=== PATIENT | male | born 1985 | race Caucasian/White ===

== ENCOUNTER 2024-09-26 15:39 | Emergency (ER) | payer BC, SELFPAY ==
[2024-09-26] VITALS (26 sets, daily range): BP systolic 132–165; BP diastolic 84–118; PULSE 73–97; RESP 12–20; TEMP 36.8; O2SAT 96–100; BMI 31.6
--- NOTE | 2024-09-26 16:33 | CRLHL7_ITS ---
For Patients: As a result of the Cures Act, medical imaging exams and procedure reports are released immediately into your electronic medical record. You may view this report before your referring provider. If you have questions, please contact your health care provider. INDICATION: SOB, chest pain. TECHNIQUE: Chest 2 views. COMPARISON: None. FINDINGS: Cardiovascular and mediastinum: Heart size is normal. Unremarkable mediastinum. Lungs and pleural spaces: Lungs are clear. No sign of infiltrate or mass. No sign of pleural effusion. No pneumothorax. Bones and soft tissues: No significant findings. IMPRESSION: No acute or significant findings. Dictated by Alden Batres MD @ 09/26/2024 6:02:33 PM (Electronically Signed)
[2024-09-26] MEDS: 0.9 % SODIUM CHLORIDE 1000 ml 1,000 ML IV (16:47)
--- NOTE | 2024-09-26 16:56 | ED.ARRPALP ---
HPI - Arrhythmia/Palpitations General Date Seen: 09/26/24 Chief Complaint: Arrhythmia/Palpitations Stated Complaint: Heart arrhythmia Time Seen by Provider: 09/26/24 15:45 Source: patient and family Mode of arrival: ambulatory Limitations: no limitations History of Present Illness HPI narrative: Patient is a very nice 39-year-old gentleman who presents here with a history of PVCs and tachycardia. He describes his tachycardia for the last greater than 30 years. He did see a photogravure press operator in the last 10-15 years, for it. He has learned however over time that when he has these PVCs any has an episode of tachycardia which is usually greater than 150 beats per minute he will bear down and do a Valsalva maneuver, and ice will terminated. He tells me he did terminate 1 episode in the waiting room here. He has noted PVCs or extra beats for the last 2-4 hours. He feels this is just a thump in his chest. He does not have any chest pain any shortness of breath with this there is no leg swelling. He is under a lot of stress, and does drink a fair bit of alcohol, but has really decreased in the last 4-5 days. He only drinks 2 glasses of wine during this time and usually he drinks a bottle or bottle and a half. He is accompanied by his Candy here. He was previously seen by cardiology at [facility]. We will endeavor to get that information. No history of illicit drug use, no history of cold medications, no fevers chills or sweats he does not have cough or any infectious etiology symptoms. Denies any leg swelling, decreased exercise tolerance sweating, referred pain, Cardiac risk factors include male, no close relatives that have of coronary disease at a young age, but family member did have tachycardia also. There was a question for him whether not he had [id number]. This was never confirmed. He is a nonsmoker, nonuser of drugs, has no idea about his cholesterol, has never been told he is hypertensive. Does have a history of anxiety, and least 1 previous time he was seen for a panic attack. We have no old records of him here. complaint: heart racing and skipped beats Associated symptoms: anxiety Treatments prior to arrival: vagal maneuvers Related Data Home Medications ?Medication ?Instructions ?Recorded ?Confirmed No Known Home Medications 09/26/24 09/26/24 Allergies Allergy/AdvReac Type Severity Reaction Status Date / Time No Known Drug Allergies Allergy Verified 09/26/24 15:56 Review of Systems Status of ROS: Reports: 10 or more systems reviewed and unremarkable except as noted in History and below [facility] Social History Smoking Status: Never smoker How often do you have a drink containing alcohol: never AUDIT-C Alcohol total score: 0 Non-prescribed substance use: denies use Exam Narrative: Exam Narrative: On examination in room 8 he is in no apparent distress, PVCs are noted on the monitor, and he is mildly hypertensive. He is alert oriented x3 nontoxic. Speaking to me normally. Accompanied by his . Pupils are equal round reactive to light there is no scleral icterus redness is TMs normal oropharynx is normal his neck is supple thyroid is normal midline not enlarged and not tender. JVP is flat, chest is good air entry bilaterally with no wheezing crackles noted, scar from a previous excision of a sebaceous cyst is noted on his back is heart sounds no clicks murmurs or gallops his abdomen is soft there is no guarding no organomegaly bowel sounds are normal his HJR is negative, extremities are normal, moves all extremities independently and well with normal power proximally distally there is no edema swelling negative Homans sign. No evidence of rashes. Const: Vital Signs, click to edit/add: Vital Signs - 24 hr 09/26/24 15:50 09/26/24 16:01 09/26/24 16:32 Temperature 98.3 F Pulse Rate 88 73 Pulse Rate [Pulse Oximeter] 88 Respiratory Rate 20 14 12 Blood Pressure 160/114 H 165/111 H Blood Pressure [Ri ght Upper Arm] 161/118 H Pulse Oximetry 99 100 99 Oxygen Delivery Me thod Room Air 09/26/24 16:45 09/26/24 17:02 09/26/24 17:31 Temperature Pulse Rate 73 79 Pulse Rate [Pulse Oximeter] Respiratory Rate 14 12 Blood Pressure 140/84 H 156/98 H Blood Pressure [Ri ght Upper Arm] Pulse Oximetry 100 99 98 Oxygen Delivery Me thod 09/26/24 18:01 09/26/24 19:24 09/26/24 19:31 Temperature Pulse Rate 74 88 87 Pulse Rate [Pulse Oximeter] Respiratory Rate 14 14 16 Blood Pressure 136/109 H 142/112 H 153/94 H Blood Pressure [Ri ght Upper Arm] Pulse Oximetry 96 99 98 Oxygen Delivery Me thod 09/26/24 20:01 09/26/24 20:15 09/26/24 20:30 Temperature Pulse Rate 81 83 81 Pulse Rate [Pulse Oximeter] Respiratory Rate 16 Blood Pressure 132/99 H Blood Pressure [Ri ght Upper Arm] Pulse Oximetry 100 98 97 Oxygen Delivery Me thod 09/26/24 20:31 Temperature Pulse Rate 81 Pulse Rate [Pulse Oximeter] Respiratory Rate 16 Blood Pressure 150/99 H Blood Pressure [Ri ght Upper Arm] Pulse Oximetry 97 Oxygen Delivery Me thod Documenting provider has reviewed patient's vital signs: yes Course Course ED Course: Patient remained pain-free, and remain non tachycardic but his troponins did rise from 0 - .09- .14 I spoke to at [facility], he recommended transfer, for minimum a CT angiogram, he recommended heparinization, but given the fact that his pulse remained in the 80s 70s, he did think a beta-smith was needed. I discussed this with the patient, he has had a troponin leak, this could be just from his tachycardia but also could be from a small infarction. We will transfer him by ambulance once a bed is available. Vital Signs Vital signs: Initial Vital Signs Temperature 98.3 F 09/26/24 15:50 Temperature Source Temporal Artery Scan 09/26/24 15:50 Pulse Rate 88 09/26/24 15:50 Respiratory Rate 20 09/26/24 15:50 Blood Pressure 161/118 H 09/26/24 15:50 Blood Pressure Mean 132 H 09/26/24 15:50 Blood Pressure Position Sitting 09/26/24 15:50 Pulse Oximetry 99 09/26/24 15:50 Oxygen Delivery Method Room Air 09/26/24 15:50 Vital Signs Temperature 98.3 F 09/26/24 15:50 Pulse Rate 88 09/26/24 15:50 Respiratory Rate 20 09/26/24 15:50 Blood Pressure 161/118 H 09/26/24 15:50 Pulse Oximetry 99 09/26/24 15:50 Oxygen Delivery Method Room Air 09/26/24 15:50 Temperature 98.3 F 09/26/24 15:50 Pulse Rate 81 09/26/24 20:31 Respiratory Rate 16 09/26/24 20:31 Blood Pressure 150/99 H 09/26/24 20:31 Pulse Oximetry 97 09/26/24 20:31 Oxygen Delivery Method Room Air 09/26/24 15:50 Medications Administered Medications: Generic Name Dose Route Start Last Admin Trade Name Freq PRN Reason Stop Dose Admin Heparin Sodium (Porcine) 4,000 unit 09/26/24 21:55 09/26/24 22:08 Heparin 5,000 Unit/0.5 Ml Inj IVP 09/26/24 21:56 4,000 unit ONCE ONE Administration Heparin Sodium/Dextrose 25,000 unit in 500 mls @ 0 mls/hr 09/26/24 22:00 09/26/24 22:09 Heparin IV 1,000 unit/hr .Q0M ERIN 20 mls/hr Administration Protocol Per Protocol Discontinued Medications Generic Name Dose Route Start Last Admin Trade Name Freq PRN Reason Stop Dose Admin Aspirin 324 mg 09/26/24 19:26 09/26/24 19:36 Aspirin 81 Mg Tab.Chew PO 09/26/24 19:27 324 mg ONCE ONE Administration Sodium Chloride 1,000 mls @ 1,000 mls/hr 09/26/24 16:45 09/26/24 18:45 0.9 % Sodium Chloride 1000 Ml IV 09/26/24 17:44 Infused .Q1H ERIN Infusion MDM - Arrhythmia/Palpitations MDM Narrative Medical decision making narrative: Differential diagnosis includes but is not limited to psychosocial stress, thyroid abnormalities, CHF, SVT, atrial fibrillation, ventricular tachycardia and ventricular fibrillation. This includes the life-threatening complications of heart failure, V-tach, and VFib Medical Records Attestation: I reviewed the patient's medical records. Medical records narrative: I reviewed his records from the [place] [id number] Lab Data Attestation: I reviewed the patient's lab results. Labs: Lab Results 09/26/24 09/26/24 09/26/24 Range/Units 16:40 16:45 18:36 WBC 7.01 (4.50-11.00) K/uL RBC 5.34 (4.30-5.90) m/uL Hgb 16.2 (13.5-17.5) gm/dL Hct 46.7 (37.0-53.0) % MCV 88 (80-100) fL MCH 30 (26-34) pg MCHC 35 (32-36) gm/dL RDW Coeff of Josias 11.9 (11.5-15.5) % Plt Count 191 (140-440) K/uL Neut % (Auto) 63.2 (42.0-72.0) % Lymph % (Auto) 24.8 (20-44) % Elliott % (Auto) 10.1 (0.0-11.0) % Eos % (Auto) 1.4 (0.0-7.0) % Baso % (Auto) 0.4 (0.0-3.0) % Neut # (Auto) 4.42 (1.7-7.0) K/uL Lymph # (Auto) 1.74 (0.90-2.90) K/uL Elliott # (Auto) 0.70 (0.00-0.90) K/UL Eos # (Auto) 0.10 (0.00-0.50) K/uL Baso # (Auto) 0.03 (0.00-0.30) K/uL Abs Immat Gran (auto) 0.01 (0.00-0.30) K/uL Imm/Tot Granulo (auto) 0.1 % INR 0.94 (0.91-1.10) D-Dimer Quant (PE/DVT) 0.22 (0.00-0.50) ug/ml Sodium 134 L (135-149) mmol/L Potassium 3.7 (3.6-5.1) mmol/L Chloride 99 (96-114) mmol/L Carbon Dioxide 25 (20-32) mmol/L Anion Gap 10 (7-15) mEq/L BUN 16 (5-24) mg/dL Creatinine 0.9 (0.5-1.5) mg/dL Estimated Creat Clear 111.53 Estimated GFR 110 ml/min Glucose 105 (60-115) mg/dL Calcium 9.8 (8.4-10.6) mg/dL Magnesium 2.1 (1.5-2.6) mg/dL Total Bilirubin 0.3 (0.1-1.5) mg/dL Direct Bilirubin 0.2 (0.0-0.5) mg/dL AST 58 H (12-35) U/L ALT 59 H (4-50) U/L Alkaline Phosphatase 74 (40-150) U/L Troponin I (0.01-0.04) ng/mL C-Reactive Protein < 0.5 L (0.5-1.0) mg/dL NT-Pro-B Natriuret Pep < 20 pg/mL Total Protein 7.8 (6.0-8.3) g/dL Albumin 4.7 (3.3-5.0) g/dL TSH 2.680 (0.270-4.20) uIU/mL Urine Opiates Screen Negative (Negative) Ur Oxycodone Screen Negative (Negative) Urine Methadone Screen Negative (Negative) Ur Barbiturates Screen Negative (Negative) U Tricyclic Antidepress Negative (Negative) Ur Phencyclidine Scrn Negative (Negative) Ur Amphetamines Screen Negative (Negative) U Methamphetamines Scrn Negative (Negative) U Benzodiazepines Scrn Negative (Negative) Urine Cocaine Screen Negative (Negative) U Marijuana (THC) Screen Negative (Negative) Ur Drug Screen Comment See Note Ethyl Alcohol < 0.01 L (0.01-0.03) % SARS-CoV-2 (PCR) Negative SARS-CoV-2 (Negative) Influenza Type A (PCR) Negative PCR FLU A (Negative) Influenza Type B (PCR) Negative PCR FLU B (Negative) RSV (PCR) Negative PCR RSV (Negative) Lab Acknowledgement POC Troponin I 0.00 L (0.01-0.04) ng/ml 09/26/24 09/26/24 09/26/24 Range/Units 18:46 20:50 22:07 WBC (4.50-11.00) K/uL RBC (4.30-5.90) m/uL Hgb (13.5-17.5) gm/dL Hct (37.0-53.0) % MCV (80-100) fL MCH (26-34) pg MCHC (32-36) gm/dL RDW Coeff of Josias (11.5-15.5) % Plt Count (140-440) K/uL Neut % (Auto) (42.0-72.0) % Lymph % (Auto) (20-44) % Elliott % (Auto) (0.0-11.0) % Eos % (Auto) (0.0-7.0) % Baso % (Auto) (0.0-3.0) % Neut # (Auto) (1.7-7.0) K/uL Lymph # (Auto) (0.90-2.90) K/uL Elliott # (Auto) (0.00-0.90) K/UL Eos # (Auto) (0.00-0.50) K/uL Baso # (Auto) (0.00-0.30) K/uL Abs Immat Gran (auto) (0.00-0.30) K/uL Imm/Tot Granulo (auto) % INR (0.91-1.10) D-Dimer Quant (PE/DVT) (0.00-0.50) ug/ml Sodium (135-149) mmol/L Potassium (3.6-5.1) mmol/L Chloride (96-114) mmol/L Carbon Dioxide (20-32) mmol/L Anion Gap (7-15) mEq/L BUN (5-24) mg/dL Creatinine (0.5-1.5) mg/dL Estimated Creat Clear Estimated GFR ml/min Glucose (60-115) mg/dL Calcium (8.4-10.6) mg/dL Magnesium (1.5-2.6) mg/dL Total Bilirubin (0.1-1.5) mg/dL Direct Bilirubin (0.0-0.5) mg/dL AST (12-35) U/L ALT (4-50) U/L Alkaline Phosphatase (40-150) U/L Troponin I 0.09 H* 0.14 H* (0.01-0.04) ng/mL C-Reactive Protein (0.5-1.0) mg/dL NT-Pro-B Natriuret Pep pg/mL Total Protein (6.0-8.3) g/dL Albumin (3.3-5.0) g/dL TSH (0.270-4.20) uIU/mL Urine Opiates Screen (Negative) Ur Oxycodone Screen (Negative) Urine Methadone Screen (Negative) Ur Barbiturates Screen (Negative) U Tricyclic Antidepress (Negative) Ur Phencyclidine Scrn (Negative) Ur Amphetamines Screen (Negative) U Methamphetamines Scrn (Negative) U Benzodiazepines Scrn (Negative) Urine Cocaine Screen (Negative) U Marijuana (THC) Screen (Negative) Ur Drug Screen Comment Ethyl Alcohol (0.01-0.03) % SARS-CoV-2 (PCR) (Negative) Influenza Type A (PCR) (Negative) Influenza Type B (PCR) (Negative) RSV (PCR) (Negative) Lab Acknowledgement Test Added POC Troponin I 0.09 H (0.01-0.04) ng/ml ECG Data Attestation: I personally reviewed and interpreted this ECG as follows: ECG interpretation date: 09/26/24 Prior ECG tracings: not available for review Interpretation: EKG shows normal sinus rhythm with premature atrial contractions, there is some ST wave flattening noted laterally, leads V3 through V6. And also inferiorly. QRS is normal, and 76 milliseconds QT and QTC are also normal. Repeat EKG show progressive T-wave inversion across the precordial leads Critical Care Time Critical Care Time Critical Care Time: Yes Attestation: The patient required my highest level preparedness to intervene emergently and I personally spent this critical care time directly and personally managing the patient. This critical care time included: Obtaining a history; Examining the patient; Pulse oximetry; Ordering and reviewing of studies; Arranging urgent treatment with development of a management plan; Evaluation of patients response to treatment; Frequent reassessment discussions with other providers. This critical care time was performed to assess and manage the high probability of imminent life-threatening deterioration that could result in multiorgan failure. It was exclusive of separate billable procedures and treating other patients and teaching time. Total Critical Care Time in Minutes: 60 Discharge Plan Discharge Clinical Impression: Palpitations, Supraventricular tachycardia, Elevated troponin, Non-STEMI (non-ST elevated myocardial infarction) Patient Disposition: [facility] Condition: Guarded Prescriptions: No Action No Known Home Medications Follow Up/Referrals: Provider,Not a Local [Primary Care Provider] - Stand Alone Forms: [employer] Info Instructions
[2024-09-26 17:29] LABS: INR 0.94 (0.91-1.10); Prothrombin Time 13.2 Seconds
[2024-09-26 17:30] LABS: Albumin* 4.7 g/dL (3.3-5.0); Chloride* 99 mmol/L (96-114)
[2024-09-26 17:31] LABS: Potassium* 3.7 mmol/L (3.6-5.1); Sodium* 134 mmol/L (135-149)
[2024-09-26 17:33] LABS: Alanine Aminotransferase* 59 U/L (4-50); Alkaline Phosphatase* 74 U/L (40-150); Aspartate Amino Transferase* 58 U/L (12-35); Bilirubin Direct* 0.2 mg/dL (0.0-0.5); Bilirubin Total* 0.3 mg/dL (0.1-1.5); Total Protein* 7.8 g/dL (6.0-8.3)
[2024-09-26 17:34] LABS: Creatinine* 0.9 mg/dL (0.5-1.5); Est. Creatinine Clearance* 111.53; Estimated Glomerular Filt Rate 110 ml/min
[2024-09-26 17:35] LABS: Anion Gap 10 mEq/L (7-15); Blood Urea Nitrogen* 16 mg/dL (5-24); Calcium* 9.8 mg/dL (8.4-10.6); Carbon Dioxide* 25 mmol/L (20-32); Ethanol* < 0.01 % (0.01-0.03); Glucose* 105 mg/dL (60-115); Magnesium* 2.1 mg/dL (1.5-2.6)
[2024-09-26 17:36] LABS: PCR FLU A Negative PCR FLU A (Negative); PCR FLU B Negative PCR FLU B (Negative); PCR RSV Negative PCR RSV (Negative); SARS PCR* Negative SARS-CoV-2 (Negative)
[2024-09-26 17:38] LABS: D Dimer Quantitative* 0.22 ug/ml (0.00-0.50)
[2024-09-26 17:43] LABS: NT Pro B Type NatriureticPept* < 20 pg/mL
[2024-09-26 17:57] LABS: C Reactive Protein* < 0.5 mg/dL (0.5-1.0)
[2024-09-26 18:51] LABS: Amphetamine Screen Urine Negative (Negative); Barbiturate Screen Urine Negative (Negative); Benzodiazepines Screen Urine Negative (Negative); Cannabinoid Screen Urine Negative (Negative); Cocaine Screen Urine Negative (Negative); Methadone Screen Urine Negative (Negative); Methamphetamines Screen Urine Negative (Negative); Opiate Screen Urine Negative (Negative); Oxycodone Screen Urine Negative (Negative); Phencyclidine Screen Urine Negative (Negative); Tricyclic Antidepressant Urine Negative (Negative)
[2024-09-26 19:07] LABS: Basophils Absolute Auto 0.03 K/uL (0.00-0.30); Basophils Percent Auto 0.4 % (0.0-3.0); Eosinophils Percent Auto 1.4 % (0.0-7.0); Hematocrit 46.7 % (37.0-53.0); Hemoglobin* 16.2 gm/dL (13.5-17.5); Immature Granulocytes Abs Auto 0.01 K/uL (0.00-0.30); Immature Granulocytes Pct Auto 0.1 %; Lymphocytes Absolute Auto 1.74 K/uL (0.90-2.90); Lymphocytes Percent Auto 24.8 % (20-44); Mean Corpuscular HGB Conc 35 gm/dL (32-36); Mean Corpuscular Hemoglobin 30 pg (26-34); Mean Corpuscular Volume 88 fL (80-100); Monocytes Percent Auto 10.1 % (0.0-11.0); Neutrophils Absolute Auto 4.42 K/uL (1.7-7.0); Neutrophils Percent Auto 63.2 % (42.0-72.0); Platelet Count* 191 K/uL (140-440); RDW Coefficient of Variation % 11.9 % (11.5-15.5); Red Blood Count 5.34 m/uL (4.30-5.90); White Blood Count* 7.01 K/uL (4.50-11.00)
[2024-09-26 19:15] LABS: Troponin, Point-of-Care* 0.09 ng/ml (0.01-0.04)
[2024-09-26 19:20] LABS: Slide Review Reflex No
[2024-09-26] MEDS: ASPIRIN 81 MG TAB.CHEW 324 MG PO (19:36)
[2024-09-26 19:42] LABS: Troponin I* 0.09 ng/mL (0.01-0.04)
[2024-09-26 21:28] LABS: Troponin I* 0.14 ng/mL (0.01-0.04)
[2024-09-26] MEDS: HEPARIN 5,000 UNIT/0.5 ML INJ 4000 UNIT IVP (22:08)
[2024-09-26] MEDS: HEPARIN 25,000 UNIT/500 ML BAG 20 UNIT IV (22:09)
[2024-09-26 22:53] LABS: Partial Thromboplastin Time* 25 Seconds (23-33)
== END 2024-09-26 23:20 | disposition short-term general hospital (02) ==
PROVIDERS: Emergency Provider Family Medicine
DX: I47.10 Supraventricular tachycardia, unspecified (principal); I21.4 Non-ST elevation (NSTEMI) myocardial infarction
CPT/HCPCS: 36415; 71046; 80048; 80076; 80306; 82077; 83735; 83880; 84443; 84484; 85025; 85379; 85610; 85730; 86140; 87631; 93005; 93308; 94761; 99285; 99291; A9270; J1644; J7030

== ENCOUNTER 2024-09-26 23:15 | Outpatient (CLI) | payer BC, SELFPAY | END 2024-09-26 23:16 | disposition home or self-care (01) | LOC: AMB 10-11 01:20 | PROVIDERS: Visit Provider Family Medicine | DX: I21.4 Non-ST elevation (NSTEMI) myocardial infarction (principal) | CPT/HCPCS: A0425; A0434 ==

== ENCOUNTER 2025-08-01 18:54 | Emergency (ER) | payer BC, SELFPAY ==
[2025-08-01] VITALS (34 sets, daily range): BP systolic 93–141; BP diastolic 66–105; PULSE 97–230; RESP 6–30; TEMP 37.1; O2SAT 88–98; BMI 34.4
--- OUTSIDE RECORDS SUMMARY | 2025-08-01 18:56 | XMS_ITS | Clinical Summary ---
Author Organization [employer] [facility] Address [address] [place] [id number] Care Team Providers Care Water Plant Operator Name Role Phone Willam Serra MD Primary Care Provider Jennifer vailable Allergies No known active allergies Medications ibuprofen (ADVIL; MOTRIN) 200 mg tablet Take 400 mg by mouth 3 times daily if needed. Active metoprolol succinate 50 mg sustained-releas e tabletIndication s:Tachycardia Take 1 Tablet (50 mg) by mouth once daily. 90 Tablet 3 01/29/2025 Active Active Problems Problem Noted Date Diagnosed Date Tachycardia 09/27/2024 Alcohol use disorder 09/27/2024 Tachycardia, paroxysmal 01/25/2018 Palpitations 01/25/2018 PVC's (premature ventricular contractions) 01/18 Overview (01/29/2025): Diagnosed January 2018 Probably long-standing [facility] Resolved Problems Problem Noted Date Diagnosed Date Resolved Date Chest pain 09/27/2024 09/27/2024 Encounters Date Type Department Care Team Description 08/01/2025 Telephone [facility] [address] [place] [address] [place] [address] Bubba Kim MD Concerns from Last 3 Months Immunizations Immunization Administration Dates Next Due COVID-19 vaccine ([employer]ango-[employer] NTech 30mcg/0.3mL) SHRUTHI MCCARTHY 03/01/2021,02/06/2021 DTaP 03/25/1986,03/20/1984,01/24/1984 Influenza, IIV4 09/21/2020,09/30/2018,09/13/2017 Influenza,LAIV4 Live Intranasal (Flumist) 2013,09/02/2013 MMR 02/26/1996,1983 Polio Virus, Unspecified 03/25/1986,01/24/1984 Tdap 12/18/2014 Family History Relation Name Status Comments Father Alive htn Maternal Grandfather CVA Maternal Grandmother Alive Mother Alive Paternal Grandfather Alive DM,htn Paternal Grandmother Alive Sister Alive Social History Tobacco Use Types Packs/Day Years Used Date Smoking Tobacco: Never Smokeless Tobacco: Never Tobacco Cessation:Counseling Given: Yes Alcohol Use Standard Drinks/Week Comments Yes 0 (1 standard drink = 0.6 oz pur e alcohol) PHQ-2 Answer Date Recorded PHQ-2 TOTAL SCORE 0 12/23/2020 Social Connections Answer Date Recorded Do you often feel lonely or isolated from those around you? 0 09/27/2024 Financial Resource Strain Answer Date R ecorded Difficulty of Paying Living Expenses 3 09/27/2024 Difficulty of Paying Living Expenses Not on file 09/27/2024 Food Insecurity Answer Date Recorded Do you worry your food will run out before you are able to buy more? 1 09/27/2024 Transportation Needs Answer Date Record ed Does lack of transportation keep you from medica l appointments? 1 09/27/2024 Does lack of transportation keep you from work, meetings or getting things that you need? 1 09/27/2024 Housing Stability Answer Date Recorded What is your housing situation today? 1 09/27/2024 Interpersonal Safety Answer Date Record ed Are you being hit, kicked, p ushed or yelled at (see row info)? No 09/27/2024 Interpersonal Safety Abuse 12 - 18 Not on file 09/27/2024 Interpersonal Safety Ambulatory Vulnerability No t on file 09/27/2024 Utilities Answer Date Recorded Do you have trouble paying f or utilities (for example, heat, electricity, water, phone)? 1 09/27/2024 Sex and Gender Information Value Date Recorded Sex Assigned at Not on file Legal Sex Male 5:24 AM TAX RECORD CLERK Gender Identity Not on file Sexual Orientation Not on file Occupation Industry Job Start Date Job End Date IT Not on file Not on file Not on file Obstetrics History Last Filed Vital Signs Vital Sign Reading Time Taken Comments Blood Pressure 151/100 01/29/2025 9:48 AM CDT Pulse 85 01/29/2025 9:46 AM CDT Temperature 36.4 C (97.5 F) 09/28/2024 7:40 AM TAX RECORD CLERK Respiratory Rate 16 09/28/2024 7:40 AM TAX RECORD CLERK Oxygen Saturation 98% 01/29/2025 9:46 AM CDT Inhaled Oxygen Concentration - - Weight 104.3 kg (230 lb) 01/29/2025 9:46 AM CDT Height 175.3 cm (5' 9) 09/27/2024 12:20 AM TAX RECORD CLERK Body Mass Index 33.97 09/27/2024 12:20 AM TAX RECORD CLERK Plan of Treatment Health Maintenance Due Date Last Done Comments HIV for age 15-65 1998 Hepatitis C screening for ag e 18-79 2001 Hepatitis B series for 19+ ( 1 of 3 - 19+ 3-dose series) 2002 Pneumococcal series for age 6-49 (1 of 2 - PCV) 2002 HPV series for age 9-45 (1 - 3-dose SCDM series) 2010 BMI (ht and wt on same day) for age 18+ 12/27/2021 12/27/2020, 12/23/2020 Depression screening for age 12+ 12/27/2021 12/27/2020, 12/24/2020, 12/23/2020, Additional history exists Tetanus booster 12/18/2024 12/18/2014 COVID-19 vaccine series ( season) 2025 03/01/2021, 02/06/2021 Influenza Vaccine (#1) 2025 , 09/30/2018, 09/13/2017, Additional history exists Lipids for age 35-44 09/27/2029 09/27/2024 RSV vaccine for adults or (1 - 1-dose 75+ series) 2058 Procedures Procedure Name Priority Date/Time Associated Diagnosis Comments LIPID PANEL Early AM 09/27/2024 4:53 AM TAX RECORD CLERK from Last 3 Months or Most Recently Relevant to Health Maintenance Results * Lipid Panel AM (09/27/2024 4:53 AM TAX RECORD CLERK) CHOLESTEROL,TOTAL 173 100 - 199 mg/dL 09/27/2024 5:[address] [facility] Comment: Cholesterol, Total Reference Ranges Desirable <200 mg/dL Borderline 200-239 mg/dL High >=240 mg/dL TRIGLYCERIDES 141 <150 mg/dL 09/27/2024 5:[address] [facility] HDL CHOLESTEROL 42 >40 mg/dL 5:[address] [facility] NON-HDL CHOLESTEROL 131 <145 mg/dl 09/27/2024 5:[address] [facility] CHOL/HDL RATIO 4.12 <4.50 09/27/2024 5:[address] [facility] LDL CHOLESTEROL 103 <=130 mg/dL 09/27/2024 5:[address] [facility] VLDL CHOLESTEROL 28 <=30 mg/dL 09/27/2024 5:[address] [facility] PROVIDER ORDERED STATUS RANDOM 09/27/2024 5:[address] [facility] Blood BLOOD SPECIMEN / Unknown Venipuncture / Unknown 09/27/2024 4:53 AM TAX RECORD CLERK 09/27/2024 5:11 AM TAX RECORD CLERK Kassidy Garrido MD CHEMISTRY Final Result [facility] [address] [place] [id number], from Last 3 Months or Most Recently Relevant to Health Maintenance Insurance [facility] Advance Directives * Full Code (Latest Code Status on File) Date Activated Date Inactivated Comments 09/27/2024 12:30 AM 09/28/2024 2:38 PM Question Answer Comments Code Status Discussion: Unable to Assess Preferences, Provider to review later Care Teams Water Plant Operator Relationship Specialty Start Date End Date Willam Serra MD PCP - General 01/08/09
[2025-08-01] MEDS: ADENOSINE 6 MG/2ML INJ IVP ×2 (19:19→19:55)
[2025-08-01] MEDS: METOPROLOL TARTRATE 1 MG/ML inj 5 MG IVP (19:26)
--- NOTE | 2025-08-01 19:29 | PC.NURSE ---
repeated 6mg dose of Adenosine was unsuccessful, Dr Langley at bedside
[2025-08-01] MEDS: ADENOSINE 6 MG/2ML INJ 12 MG IVP ×2 (19:35→21:40)
--- NOTE | 2025-08-01 19:35 | PC.NURSE ---
12 mg dose given with results, rate 100-110
--- NOTE | 2025-08-01 19:39 | ED.ARRPALP ---
HPI - Arrhythmia/Palpitations General Chief Complaint: Arrhythmia/Palpitations Stated Complaint: Tachycardia Time Seen by Provider: 08/01/25 18:55 History of Present Illness HPI narrative: This 39-year-old male comes in with tachycardia. He arrives with a pulse at around 230 beats per minute. He states that he has had this happen many times in the past and typically he can do a Valsalva maneuver and correct the rhythm. Today he was unable to do so. He states that this came on about 2 hours prior to arrival. He does not report any lightheadedness or shortness of breath and does not have any chest pain. He states that he had a rather thorough workup a little less than a year ago and has been taking metoprolol succinate 25 mg and doing well with this medicine. Related Data Home Medications ?Medication ?Instructions ?Recorded ?Confirmed metoprolol succinate 50 mg 25 mg PO DAILY 08/01/25 08/01/25 tablet,extended release 24 hr Previous Rx's ?Medication ?Instructions ?Recorded metoprolol succinate 50 mg 50 mg PO DAILY #90 tabs 08/01/25 tablet,extended release 24 hr Allergies Allergy/AdvReac Type Severity Reaction Status Date / Time No Known Drug Allergies Allergy Verified 09/26/24 15:56 Review of Systems Status of ROS: Reports: 10 or more systems reviewed and unremarkable except as noted in History and below Narrative: Constitutional: No fevers, no weight gain or loss. Eyes: No discharge. No vision changes. HENT: No congestion, no sore throat, no ear pain. Cardiovascular: No chest pain. Respiratory: No shortness of breath, no wheezes, no cough. Gastrointestinal: No abdominal pain, no vomiting, no diarrhea. Genitourinary: No dysuria, no hematuria. Musculoskeletal: Normal range of motion. Skin: No rashes, no pruritis. Neurological: No dizziness, weakness, sensory change, speech change. Endo/Heme/Allergies: No bruising or bleeding. No polydipsia. Pysch: no suicidality, no anxiety, no insomnia. All other systems reviewed and are negative. [facility] Social History Smoking Status: Never smoker How often do you have a drink containing alcohol: never AUDIT-C Alcohol total score: 0 Non-prescribed substance use: denies use service: No Exam Narrative: Exam Narrative: Constitutional: Well-developed, well-nourished, no acute distress. HEENT: Normocephalic, atraumatic. Neck: Normal range of motion. Nontender. Supple. Heart: Regular. No murmurs. Tachycardia, rate 230 beats per minute. Intact distal pulses. Lungs: Clear to auscultation. No chest discomfort. No wheezes, rhonchi, or rales. Abdomen: Normal bowel sounds. Nontender. No rebound tenderness. Genitalia: Deferred. Back: No midline tenderness. Normal range of motion. Extremities: Normal range of motion. No injury. Skin: Intact. No rash. Warm. No erythema or pallor. Neurologic: No altered sensation. No weakness. Alert and oriented. Psychiatric: No suicidality. No anxiety or depression. No insomnia. Nursing notes and vitals signs are reviewed. Const: Vital Signs, click to edit/add: Vital Signs - 24 hr 08/01/25 19:05 08/01/25 19:20 08/01/25 19:21 Temperature 98.8 F Pulse Rate 229 H 228 H Pulse Rate [Right Pulse Oximeter] 228 H Respiratory Rate 20 25 H 19 Blood Pressure 141/104 H Pulse Oximetry 96 93 96 Oxygen Delivery [facility] Room Air 08/01/25 19:23 08/01/25 19:28 08/01/25 19:30 Temperature Pulse Rate 230 H 214 H 209 H Pulse Rate [Right Pulse Oximeter] Respiratory Rate 6 L 17 7 L Blood Pressure 139/105 H 109/94 H Pulse Oximetry 93 96 97 Oxygen Delivery [facility] 08/01/25 19:31 08/01/25 19:36 08/01/25 19:45 Temperature Pulse Rate 210 H 98 97 Pulse Rate [Right Pulse Oximeter] Respiratory Rate 14 13 9 L Blood Pressure 111/84 125/95 H Pulse Oximetry 94 91 93 Oxygen Delivery [facility] 08/01/25 19:46 08/01/25 19:50 08/01/25 20:00 Temperature Pulse Rate 97 213 H 214 H Pulse Rate [Right Pulse Oximeter] Respiratory Rate 20 20 18 Blood Pressure 116/83 121/87 Pulse Oximetry 95 98 95 Oxygen Delivery [facility] 08/01/25 20:01 08/01/25 20:02 08/01/25 20:15 Temperature Pulse Rate 212 H 215 H 217 H Pulse Rate [Right Pulse Oximeter] Respiratory Rate 18 16 20 Blood Pressure 105/80 Pulse Oximetry 95 92 90 Oxygen Delivery Me thod 08/01/25 20:16 08/01/25 20:30 08/01/25 20:31 Temperature Pulse Rate 216 H 218 H 220 H Pulse Rate [Right Pulse Oximeter] Respiratory Rate 16 19 22 Blood Pressure 109/81 119/88 Pulse Oximetry 92 93 92 Oxygen Delivery Me thod Course Vital Signs Vital signs: Initial Vital Signs Respiratory Effort Normal 08/01/25 18:55 Respiratory Depth Normal 08/01/25 18:55 Respiratory Pattern Normal 08/01/25 18:55 Vital Signs Temperature 98.8 F 08/01/25 19:05 Pulse Rate 228 H 08/01/25 19:05 Respiratory Rate 20 08/01/25 19:05 Pulse Oximetry 96 08/01/25 19:05 Oxygen Delivery Method Room Air 08/01/25 19:05 Temperature 98.8 F 08/01/25 19:05 Pulse Rate 220 H 08/01/25 20:31 Respiratory Rate 22 08/01/25 20:31 Blood Pressure 119/88 08/01/25 20:31 Pulse Oximetry 92 08/01/25 20:31 Oxygen Delivery Method Room Air 08/01/25 19:05 Medications Administered Medications: Generic Name Dose Route Start Last Admin Trade Name Callum PRN Reason Stop Dose Admin Adenosine 12 mg 08/01/25 21:36 08/01/25 21:40 Adenosine 6 Mg/2ml Inj IVP 08/01/25 21:37 12 mg ONCE ONE Administration Discontinued Medications Generic Name Dose Route Start Last Admin Trade Name Callum PRN Reason Stop Dose Admin Adenosine 6 mg 08/01/25 19:37 08/01/25 19:55 Adenosine 6 Mg/2ml Inj IVP 08/01/25 19:38 6 mg ONCE ONE Administration Adenosine 6 mg 08/01/25 19:38 08/01/25 19:19 Adenosine 6 Mg/2ml Inj IVP 08/01/25 19:39 6 mg ONCE ONE Administration Adenosine 12 mg 08/01/25 19:38 08/01/25 19:35 Adenosine 6 Mg/2ml Inj IVP 08/01/25 19:39 12 mg ONCE ONE Administration Sodium Chloride 1,000 mls @ 1,000 mls/hr 08/01/25 19:45 08/01/25 20:05 0.9 % Sodium Chloride 1000 Ml IV 08/01/25 20:44 Infused .Q1H ERIN Infusion Magnesium Sulfate/Dextrose 1 gm in 100 mls @ 100 mls/hr 08/01/25 20:10 08/01/25 20:26 Magnesium Sulf 1 G/100 Ml IVPB 08/01/25 21:09 100 mls/hr ONCE ONE Administration Metoprolol Tartrate 5 mg 08/01/25 19:37 08/01/25 19:26 Metoprolol Tartrate 1 Mg/Ml Inj IVP 08/01/25 19:38 5 mg ONCE ONE Administration Metoprolol Tartrate 50 mg 08/01/25 20:10 08/01/25 20:22 Metoprolol Tartrate 50 Mg Tablet PO 08/01/25 20:11 50 mg ONCE ONE Administration MDM - Arrhythmia/Palpitations MDM Narrative Medical decision making narrative: This patient arrives with tachycardia and EKG shows supraventricular tachycardia at a rate around 230 beats per minute. He is not reporting any symptoms accompanying this rapid heart rate. An IV was established and IV fluids were began. Patient then received 6 mg of Adenocard intravenously which brought a capture of normal sinus rhythm for less than a minute after which time he reverted back to supraventricular tachycardia. He was then given 5 mg of metoprolol intravenously and this slowed his heart rate to around 210. He maintain sufficient blood pressure. A repeat 6 mg dose of Adenocard was administered but did not capture any change in his heart rate and rhythm. This was followed by 12 mg which did convert him back to normal sinus rhythm and rate. This lasted for about 10 minutes any reverted again back to a rate of about 220 beats per minute. At this time I decided to contact cardiology on-call who recommended 50 mg of metoprolol tartrate orally and after an hour to repeat the adenosine. This was done along with administering a g of magnesium. The patient received 12 mg of adenosine and this converted him to normal sinus rhythm. I did provide a prescription for 50 mg doses of metoprolol succinate as the patient had been reduced from 50-25 previously. He states that he felt fine on 50 mg so will have him increase the dose to 50 mg daily. Lab Data Labs: Lab Results 08/01/25 Range/Units 18:50 WBC 7.54 (4.50-11.00) K/uL RBC 5.51 (4.30-5.90) m/uL Hgb 16.4 (13.5-17.5) gm/dL Hct 48.0 (37.0-53.0) % MCV 87 (80-100) fL MCH 30 (26-34) pg MCHC 34 (32-36) gm/dL RDW Coeff of Josias 12.1 (11.5-15.5) % Plt Count 225 (140-440) K/uL Neut % (Auto) 50.0 (42.0-72.0) % Lymph % (Auto) 39.7 (20-44) % Simpson % (Auto) 8.2 (0.0-11.0) % Eos % (Auto) 1.5 (0.0-7.0) % Baso % (Auto) 0.5 (0.0-3.0) % Neut # (Auto) 3.77 (1.7-7.0) K/uL Lymph # (Auto) 2.99 H (0.90-2.90) K/uL Simpson # (Auto) 0.60 (0.00-0.90) K/UL Eos # (Auto) 0.11 (0.00-0.50) K/uL Baso # (Auto) 0.04 (0.00-0.30) K/uL Abs Immat Gran (auto) 0.01 (0.00-0.30) K/uL Imm/Tot Granulo (auto) 0.1 % Sodium 138 (135-149) mmol/L Potassium 4.1 (3.6-5.1) mmol/L Chloride 103 (96-114) mmol/L Carbon Dioxide 24 (20-32) mmol/L Anion Gap 11 (7-15) mEq/L BUN 11 (5-24) mg/dL Creatinine 1.1 (0.5-1.5) mg/dL Estimated Creat Clear 91.25 Estimated GFR 86 ml/min Glucose 105 (60-115) mg/dL Calcium 9.3 (8.4-10.6) mg/dL Magnesium 2.0 (1.5-2.6) mg/dL POC Troponin I 0.06 H (0.01-0.04) ng/ml Discharge Plan Discharge Clinical Impression: Supraventricular tachycardia Patient Disposition: Home w/ Parent or Adult Condition: Improved Additional Instructions: Increase metoprolol to 50 mg daily. Continue current plans otherwise. Follow up with MD or cardiology clinic or return if symptoms are recurrent or worsening. Prescriptions: New metoprolol succinate 50 mg tablet extended release 24 hr 50 mg PO DAILY Qty: 90 2RF No Action metoprolol succinate 50 mg tablet extended release 24 hr 25 mg PO DAILY Follow Up/Referrals: Provider,Not a Local [Primary Care Provider, Family Practice] Stand Alone Forms: Nugg-it Info Instructions
[2025-08-01 19:54] LABS: Hematocrit* 48.0 % (37.0-53.0); Hemoglobin* 16.4 gm/dL (13.5-17.5); Immature Granulocytes Abs Auto 0.01 K/uL (0.00-0.30); Immature Granulocytes Pct Auto 0.1 %; Lymphocytes Absolute Auto 2.99 K/uL (0.90-2.90); Mean Corpuscular HGB Conc 34 gm/dL (32-36); Mean Corpuscular Hemoglobin 30 pg (26-34); Mean Corpuscular Volume 87 fL (80-100); RDW Coefficient of Variation % 12.1 % (11.5-15.5); Red Blood Count* 5.51 m/uL (4.30-5.90); White Blood Count* 7.54 K/uL (4.50-11.00)
[2025-08-01 19:55] LABS: Slide Review Reflex No
[2025-08-01 19:58] LABS: Troponin, Point-of-Care* 0.06 ng/ml (0.01-0.04)
[2025-08-01 20:06] LABS: Chloride* 103 mmol/L (96-114); Sodium* 138 mmol/L (135-149)
[2025-08-01 20:07] LABS: Potassium* 4.1 mmol/L (3.6-5.1)
[2025-08-01 20:09] LABS: Anion Gap 11 mEq/L (7-15); Blood Urea Nitrogen* 11 mg/dL (5-24); Calcium* 9.3 mg/dL (8.4-10.6); Carbon Dioxide* 24 mmol/L (20-32); Creatinine* 1.1 mg/dL (0.5-1.5); Est. Creatinine Clearance* 91.25; Estimated Glomerular Filt Rate 86 ml/min; Glucose* 105 mg/dL (60-115)
[2025-08-01] MEDS: METOPROLOL TARTRATE 50 MG TABLET PO (20:22)
[2025-08-01] MEDS: MAGNESIUM SULF 1 G/100 ML 1 GM/100 ML PIGGYBACK IVPB (20:26)
== END 2025-08-01 22:10 | disposition home or self-care (01) ==
PROVIDERS: Emergency Provider Emergency Medicine Emergency Medical Services
DX: I47.10 Supraventricular tachycardia, unspecified (principal)
CPT/HCPCS: 36415; 80048; 83735; 84484; 85025; 93005; 94761; 96365; 96375; 99284; 99285; 99291; A9270; J0153; J3475; J7030